=== PATIENT | female | born 1975 | race Caucasian/White ===

== ENCOUNTER 2023-01-18 23:58 | Emergency (ER) | payer BC ==
[~2023-01-18] VITALS: Ht 170.2 cm; Wt 70.3 kg
[2023-01-19] MEDS ORDERED: ZESTRIL5 MG (00:14)
[2023-01-19] MEDS ORDERED: HYDROCHLOROTHIA25 MG (00:16)
[2023-01-19] MEDS ORDERED: INTESTINEX680 M1 PO (06:15)
[2023-01-19] MEDS ORDERED: ACETAMINOPHEN500 M2 PO (06:15)
[2023-01-19] MEDS ORDERED: PEPCID AC20 MG PO (06:15)
[2023-01-19] MEDS ORDERED: ONDANSETRON HCL4 MG PO (06:15)
== END 2023-01-19 06:22 | disposition home or self-care (01) ==
LOC: ER 23:58
DX: B34.9 Viral infection, unspecified (principal); R19.7 Diarrhea, unspecified; R11.2 Nausea with vomiting, unspecified; I10 Essential (primary) hypertension